=== PATIENT | female | born 1955 | race Caucasian/White ===

== ENCOUNTER 2020-02-18 09:14 | Outpatient (CLI) | payer BC, SELFPAY ==
--- NOTE | ~2020-02-18 | DEXA_ITS ---
Bone Density Report Name: Sourav Murdock Age: 64 Sex: Female Ethnicity: White Date of : 1955 Indication: postmenopausal; parental hip fracture; prior fracture; Referring Provider: Jose Quach Study: Bone densitometry was performed. Exam Date: February 18, 2020 Accession number: [id number] Bone Density: Region BMD T-score Z-score Classification AP Spine (L1-L4) 0.943 -0.9 0.7 Normal Femoral Neck (Left) 0.466 -3.4 -2.0 Osteoporosis Total Hip (Left) 0.560 -3.1 -2.0 Osteoporosis Total Hip Bilateral Avg 0.567 -3.0 -2.0 Osteoporosis Femoral Neck (Right) 0.449 -3.6 -2.2 Osteoporosis Total Hip (Right) 0.572 -3.0 -1.9 Osteoporosis World Health Organization criteria for BMD impression classify patients as: Normal (T-score at or above -1.0), Osteopenia (T-score between -1.0 and -2.5), or Osteoporosis (T-score at or below -2.5). 10-year Fracture Risk: FRAX not reported because: Some T-score for Spine Total or Hip Total or Femoral Neck at or below -2.5 Clinical Information Provided by Patient: Has had a low trauma fracture Parent has had a hip fracture Patient maximum height was 64 Menopause Age: 58 No regular weight bearing exercise Drinks caffeinated beverages Onset of menses at age 14 Number of children 2 Impression: The patient has established osteoporosis, based on the Right Femoral Neck T-score and the existence of a prior fracture. The patient has risk factors, including: parental hip fracture, previous fracture. Discussion: HIGH RISK OF FRACTURE. BONE DENSITY IS UNDESIRABLY LOW AT ONE OR MORE SKELETAL SITES, CONSISTENT WITH POSTMENOPAUSAL OSTEOPOROSIS. This patient's lowest T-score, in a patient who has previously fractured, meets the World Health Organization's (WHO) criteria for severe osteoporosis. In untreated patients, the risk of osteoporotic fracture increases approximately two-fold for each 1.0 SD decrease in T-score. Low bone density is not the only risk factor for fracture; also consider factors such as patient's age, frailty or poor health, risk of falling, risk of injury, previous osteoporotic fracture, family history of osteoporosis, cigarette smoking, low body weight, etc. Not everyone with low bone mineral density has osteoporosis; osteomalacia and other metabolic bone disorders should also be considered. Patients who have osteoporosis should be evaluated for specific diseases and conditions (secondary causes) that may cause or contribute to bone loss. The [place] [employer] Clinical Endocrinologists (AACE) and National Osteoporosis Foundation (NOF) recommend pharmacologic intervention for all postmenopausal women whose T-score is in this range. The patient should follow a healthful lifestyle (good nutrition with adequate calcium and vitamin D, and appropriate weight-bearing exercise). Fo
--- NOTE | ~2020-02-18 | MM_ITS ---
EXAMINATION: MM screening [place] BI w rossana HISTORY: Screening mammogram TECHNIQUE: Craniocaudal and mediolateral oblique 3-D tomosynthesis images were obtained and synthetic 2-D images were generated. CAD analysis was submitted and interpreted. COMPARISON: 08/21/2018, 11/29/2016, 03/19/2013 bilateral digital screening mammogram examinations BREAST PARENCHYMAL COMPOSITION: There are scattered areas of fibroglandular density. FINDINGS: There is no evidence of suspicious mass, calcification, or architectural distortion to sugg est malignancy in either breast. There has been no suspicious interval change. IMPRESSION: 1. No mammographic evidence of malignancy. 2. Recommend routine screening mammography in one year. BI-RADS Category 1: Negative Reviewed, dictated and finalized at location A.
== END 2020-02-18 09:15 | disposition home or self-care (01) ==
PROVIDERS: PCP Family Medicine; Visit Provider Family Medicine
DX: Z12.31 Encounter for screening mammogram for malignant neoplasm of breast (principal); Z13.820 Encounter for screening for osteoporosis; M81.0 Age-related osteoporosis without current pathological fracture
CPT/HCPCS: 77063; 77067; 77080

== ENCOUNTER 2020-04-17 14:49 | Emergency (ER) | payer BC, MEDICAID, SELFPAY ==
--- NOTE | ~2020-04-17 | US_ITS ---
EXAMINATION: US venous doppler [facility] EXAM DATE: 04/17/2020 16:00 INDICATION: Left leg pain and swelling. TECHNIQUE: Multiple grayscale, color flow and Doppler images of the left lower extremity deep venous system were obtained and reviewed. There is no prior study for comparison. FINDINGS: The left common femoral, femoral and profunda veins demonstrate normal color flow, respirat ory variation, augmentation and compressibility. Compressibility, color flow confirmed within the le ft popliteal, posterior tibial, peroneal, and greater saphenous veins. IMPRESSION: 1. No left lower extremity deep venous thrombosis. Reviewed, dictated and finalized at location A. Y CAREGIVER
[2020-04-17 14:53] VITALS: BP 206/96; PULSE 115; RESP 20; TEMP 36.7; O2SAT 99
--- NOTE | 2020-04-17 15:53 | ED.LOWEXIN ---
HPI - Extremity Injury (Lower) General Chief Complaint: Extremity Injury, Lower Stated Complaint: poss blood clot in leg Time Seen by Provider: 04/17/20 15:06 Source: patient Mode of arrival: ambulatory Limitations: no limitations History of Present Illness HPI Narrative: Patient is a 64-year-old female who presents to emergency department for evaluation of left leg pain patient notes today developing cramping in the left thigh and feeling as though she is having swelling about her left knee denies injury or trauma or similar occurrence has not taken anything for her symptoms patient on arrival to emergency department is in no distress presents with normal gait patient has concern for DVT noting that her mother had had a blood clot in the past Related Data Allergies Allergy/AdvReac Type Severity Reaction Status Date / Time No Known Allergies Allergy Verified 04/17/20 15:07 Review of Systems Review of Systems: All systems reviewed & are unremarkable except as noted in HPI and below PMFSH Family History Family History Grandparent Diabetes mellitus Family history of malignant neoplasm of stomach Mother Family history of malignant neoplasm of breast in first degree relative Social History Social History Smoking status: Never smoker Alcohol intake: current Exam Narrative: Exam Narrative: GENERAL: Well-appearing, well-nourished, and in no acute distress. HEAD: Normocephalic, atraumatic. EYES: PERRLA and EOMI. ENT: Nares clear, no rhinorrhea or epistaxis. Mucous membranes moist. CHEST: Clear to auscultation. No respiratory distress. No wheezes rales or rhonchi HEART: Regular rate and rhythm. No murmur heard. Normal peripheral pulses. EXTREMITIES: Normal range of motion. No edema. Remedy nontender with slight swelling to the anterior left knee no erythema or other deformities noted SKIN: Warm, dry, no rash. NEURO: No focal deficits. Alert and oriented x3. Cranial nerves II through XII grossly intact. Neurovascularly intact PSYCH: Normal mood and affect. Course Vital Signs Vital signs: Vital Signs Temperature 98.0 F 04/17/20 14:53 Pulse Rate 115 H 04/17/20 14:53 Respiratory Rate 20 04/17/20 14:53 Blood Pressure 206/96 H 04/17/20 14:53 Pulse Oximetry 99 12/18/20 14:53 Temperature 98.0 F 04/17/20 14:53 Pulse Rate 115 H 04/17/20 14:53 Respiratory Rate 20 04/17/20 14:53 Blood Pressure 206/96 H 04/17/20 14:53 Pulse Oximetry 99 04/17/20 14:53 Discharge Plan Discharge Prescriptions: No Action alendronate 70 mg tablet 70 mg PO WEEKLY Qty: 13 RF: 3
[2020-04-17 16:17] LABS: Basophils Percent Auto 0.4 % (0.2-1.2); Eosinophils Absolute Auto 0.1 K/mm3 (0-0.3); Eosinophils Percent Auto 0.7 % (0-4.4); Hematocrit 39.5 % (37.0-47.0); Hemoglobin 13.3 g/dL (12.0-15.0); Immature Granulocyte Absolute 0.04 K/mm3 (0.00-0.031); Immature Granulocyte Percent A 0.4 % (0-0.5); Lymphocytes Absolute Auto 1.27 K/mm3 (0.9-3.2); Lymphocytes Percent Auto 12.1 % (18.3-44.2); Mean Corpuscular HGB Conc 33.7 g/dl (32-36); Mean Corpuscular Hemoglobin 31.7 pg (26-34); Mean Platelet Volume 9.1 fl (7.4-10.4); Monocytes Percent Auto 9.7 % (2.6-8.5); Neutrophils Absolute Auto 8.1 K/mm3 (1.3-6.7); Neutrophils Percent Auto 76.7 % (45.5-73.1); Platelet Count Result 282 k/mm3 (150-375); Red Cell Distribution Width 13.2 % (11.5-14.5); White Blood Count 10.5 K/mm3 (4.5-10.0)
--- NOTE | 2020-04-17 16:25 | ED.GENADULT ---
HPI - General Adult General Chief complaint: Extremity Injury, Lower <Deep Richardson PA-C - Last Filed: 04/17/20 16:39> Stated complaint: poss blood clot in leg <Deep Richardson PA-C - Last Filed: 04/17/20 16:39> Time Seen by Provider: 04/17/20 15:06 <Deep Richardson PA-C - Last Filed: 04/17/20 16:39> Source: patient <Deep Richardson PA-C - Last Filed: 04/17/20 16:39> Mode of arrival: ambulatory <Deep Richardson PA-C - Last Filed: 04/17/20 16:39> Limitations: no limitations <Deep Richardson PA-C - Last Filed: 04/17/20 16:39> History of Present Illness HPI narrative: Patient is a 64-year-old female who presents to emergency department for evaluation of left thigh pain that began this morning followed by anterior left knee swelling denies injury trauma similar occurrence URI symptoms dyspnea chest pain lightheadedness dizziness. Patient does not take anything for symptoms presents in no distress <Deep Richardson PA-C - Last Filed: 04/17/20 16:39> Related Data Allergies/adverse reactions: Allergies Allergy/AdvReac Type Severity Reaction Status Date / Time No Known Allergies Allergy Verified 04/17/20 15:07 <Deep Richardson PA-C - Last Filed: 04/17/20 16:39> Review of Systems Review of Systems: All systems reviewed & are unremarkable except as noted in HPI and below <Deep Richardson PA-C - Last Filed: 04/17/20 16:39> [facility] Family History Family History: Family History Grandparent Diabetes mellitus Family history of malignant neoplasm of stomach Mother Family history of malignant neoplasm of breast in first degree relative <Deep Richardson PA-C - Last Filed: 04/17/20 16:39> Social History Social History: Social History Smoking status: Never smoker Alcohol intake: current <JOSÉ MIGUEL Byers Last Filed: 04/17/20 16:39> Exam Narrative: Exam Narrative: GENERAL: Well-appearing, well-nourished, and in no acute distress. HEAD: Normocephalic, atraumatic. EYES: PERRLA and EOMI. ENT: Nares clear, no rhinorrhea or epistaxis. Mucous membranes moist. CHEST: Clear to auscultation. No respiratory distress. No wheezes rales or rhonchi HEART: Regular rate and rhythm. No murmur heard. EXTREMITIES: Normal range of motion. No edema. Slight swelling to the anterior left knee no erythema deformity SKIN: Warm, dry, no rash. NEURO: No focal deficits. Alert and oriented x3. PSYCH: Normal mood and affect. Neurovascularly intact <JOSÉ MIGUEL Byers Last Filed: 04/17/20 16:39> Course Course Emergency Course: Patient in the room no distress aware of case findings treatment plan diagnosis agreeing to follow-up as directed or to return if symptoms worsen or concerns no high risk changes in the blood work or imaging. <JOSÉ MIGUEL Byers Last Filed: 04/17/20 16:39> Vital Signs Vital signs: Vital Signs Temperature 36.7 C 04/17/20 14:53 Pulse Rate 115 H 04/17/20 14:53 Respiratory Rate 20 04/17/20 14:53 Blood Pressure 206/96 H 04/17/20 14:53 Pulse Oximetry 99 04/17/20 14:53 Temperature 36.7 C 04/17/20 14:53 Pulse Rate 88 04/17/20 16:50 Respiratory Rate 16 04/17/20 16:50 Blood Pressure 137/84 04/17/20 16:50 Pulse Oximetry 100 04/17/20 16:50 <JOSÉ MIGUEL Byers Last Filed: 04/17/20 16:39> Vital Signs Temperature 36.7 C 04/17/20 14:53 Pulse Rate 115 H 04/17/20 14:53 Respiratory Rate 20 04/17/20 14:53 Blood Pressure 206/96 H 04/17/20 14:53 Pulse Oximetry 99 04/17/20 14:53 Temperature 36.7 C 04/17/20 14:53 Pulse Rate 88 04/17/20 16:50 Respiratory Rate 16 04/17/20 16:50 Blood Pressure 137/84 04/17/20 16:50 Pulse Oximetry 100 04/17/20 16:50 <Radha Reina MD - Last Filed: 04/17/20 17:01> Medical Decision Making
[2020-04-17 16:32] LABS: Anion Gap 7 mmol/L (8-16); Blood Urea Nitrogen 14 mg/dL (7-17); Calcium 9.4 mg/dL (8.4-10.2); Carbon Dioxide 29 mmol/L (22-30); Chloride 103 mmol/L (98-107); Estimated CRCL calculation 80 ml/min; Estimated Glomerular Filt Rate > 60; Glucose 108 mg/dL (65-105); Potassium 3.5 mmol/L (3.4-5.0); Sodium 139 mmol/L (137-145)
[2020-04-17 16:50] VITALS: BP 137/84; PULSE 88; RESP 16; O2SAT 100
== END 2020-04-17 16:53 | disposition home or self-care (01) ==
PROVIDERS: Emergency Medicine Emergency Medical Services; Emergency Provider Emergency Medicine; PCP Family Medicine
DX: M79.652 Pain in left thigh (principal)
CPT/HCPCS: 36415; 80048; 85025; 93971; 99284

== ENCOUNTER 2021-02-23 09:03 | Outpatient (CLI) | payer BC, SELFPAY ==
--- NOTE | ~2021-02-23 | MM_ITS ---
EXAMINATION: MM screening [place] BI w rossana HISTORY: Screening mammogram TECHNIQUE: Craniocaudal and mediolateral oblique 3-D tomosynthesis images were obtained and synthetic 2-D images were generated. CAD analysis was submitted and interpreted. COMPARISON: , 08/21/2018, 11/29/2016 bilateral digital screening mammogram examinations BREAST PARENCHYMAL COMPOSITION: There are scattered areas of fibroglandular density. FINDINGS: There is no evidence of suspicious mass, calcification, or architectural distortion to sugg est malignancy in either breast. There has been no suspicious interval change. IMPRESSION: 1. No mammographic evidence of malignancy. 2. Recommend routine screening mammography in one year. BI-RADS Category 1: Negative Reviewed, dictated and finalized at location A.
== END 2021-02-23 09:04 | disposition home or self-care (01) ==
LOC: ANHIMG 09:05
PROVIDERS: PCP Family Medicine; Visit Provider Family Medicine
DX: Z12.31 Encounter for screening mammogram for malignant neoplasm of breast (principal)
CPT/HCPCS: 77063; 77067

== ENCOUNTER 2022-04-19 09:41 | Outpatient (CLI) | payer MEDICARE, OTHER, SELFPAY ==
--- NOTE | ~2022-04-19 | DEXA_ITS ---
Bone Density Report Name: ANTONELLA YANES Age: 67 Sex: Female Ethnicity: White Date of : 1955 Indication: postmenopausal osteoporosis; monitoring treatment; parental hip fracture; prior fracture; Referring Provider: EDEN TORRES Study: Bone densitometry was performed. Exam Date: April 19, 2022 Accession number: [id number] Bone Density: Region BMD T-score Z-score Classification AP Spine(L1-L4) 1.074 0.2 2.1 Normal Femoral Neck (Left) 0.501 -3.1 -1.6 Osteoporosis Total Hip (Left) 0.637 -2.5 -1.2 Osteoporosis Femoral Neck (Right) 0.489 -3.2 -1.7 Osteoporosis Total Hip (Right) 0.595 -2.8 -1.6 Osteoporosis Total Hip Mean 0.616 -2.7 -1.4 Osteoporosis World Health Organization criteria for BMD impression classify patients as: Normal (T-score at or above -1.0), Osteopenia (T-score between -1.0 and -2.5), or Osteoporosis (T-score at or below -2.5). 10-year Fracture Risk: FRAX not reported because: Some T-score for Spine Total or Hip Total or Femoral Neck at or below -2.5 Treated for osteoporosis Previous Exams: Region Exam Age BMD T-score BMD Change BMD Change Date g/cm2 vs Baseline vs Previous AP Spine (L1-L4) 04/19/2022 67 1.074 0.2 0.131 (13.9%)* 0.131 (13.9%)* 02/18/2020 64 0.943 -0.9 Total Hip(Left) 04/19/2022 67 0.637 -2.5 0.077 (13.8%)* 0.077 (13.8%)* 02/18/2020 64 0.560 -3.1 Total Hip(Right) 04/19/2022 67 0.595 -2.8 0.023 (4.1%) 0.023 (4.1%) 02/18/2020 64 0.572 -3.0 *Denotes significance at 95% confidence level, LSC for AP Spine = 0.022 g/cm2, LSC for Total Hip = 0.027 g/cm2 Clinical Information Provided by Patient: Has had a low trauma fracture Parent has had a hip fracture Is being treated for osteoporosis Has used the following medications: Fosamax (i.e. alendronate), Vitamin D, Calcium Patient maximum height was 64 Menopause Age: 58 No regular weight bearing exercise Drinks caffeinated beverages Onset of menses at age 14 Number of children 2 Impression: The patient has established osteoporosis, based on the Right Femoral Neck T-score and the existence of a prior fracture. The patient has risk factors, including: parental hip fracture, previous fracture. No significant bone loss was observed. Discussion: PATIENT UNDER TREATMENT WITH NO SIGNIFICANT BMD LOSS SINCE LAST EXAM. In an untreated patient, BMD typically declines with age. A lack of decline or gain is usually a sign that t
--- NOTE | ~2022-04-19 | MM_ITS ---
EXAMINATION: MM screening [place]antiago BI w rossana HISTORY: Screening TECHNIQUE: Craniocaudal and mediolateral oblique 3-D tomosynthesis images were obtained and synthetic 2-D images were generated. CAD analysis was submitted and interpreted. COMPARISON: Comparison to multiple prior studies sequentially, with oldest reviewed study dated 03/01. BREAST PARENCHYMAL COMPOSITION: There are scattered areas of fibroglandular density. FINDINGS: There is no evidence of suspicious mass, calcification, or architectural distortion to sugg est malignancy in either breast. There has been no suspicious interval change. IMPRESSION: 1. No mammographic evidence of malignancy. 2. Recommend routine screening mammography in one year. BI-RADS Category 1: Negative Reviewed, dictated and finalized at location A. R CREW MEMBER
== END 2022-04-19 09:42 | disposition home or self-care (01) ==
LOC: ANHIMG 09:43
PROVIDERS: PCP Emergency Medicine; Visit Provider Physician Assistant
DX: Z12.31 Encounter for screening mammogram for malignant neoplasm of breast (principal); M81.0 Age-related osteoporosis without current pathological fracture
CPT/HCPCS: 77063; 77067; 77080

== ENCOUNTER 2023-10-03 09:34 | Outpatient (CLI) | payer MEDICARE, OTHER, SELFPAY ==
--- NOTE | ~2023-10-03 | MM_ITS ---
EXAMINATION: MM screening [place]antiago BI w rossana HISTORY: Screening TECHNIQUE: Craniocaudal and mediolateral oblique 3-D tomosynthesis images were obtained and synthetic 2-D images were generated. CAD analysis was submitted and interpreted. COMPARISON: Comparison to multiple prior studies sequentially, with oldest reviewed study dated 05/2016. BREAST PARENCHYMAL COMPOSITION: Not dense: There are scattered areas of fibroglandular density. FINDINGS: There is no evidence of suspicious mass, calcification, or architectural distortion to sugg est malignancy in either breast. There has been no suspicious interval change. IMPRESSION: 1. No mammographic evidence of malignancy. 2. Recommend routine screening mammography in one year. BI-RADS Category 1: Negative Reviewed, dictated and finalized at location B.
== END 2023-10-03 09:35 | disposition home or self-care (01) ==
PROVIDERS: PCP Emergency Medicine; Visit Provider Nurse Practitioner Family
DX: Z12.31 Encounter for screening mammogram for malignant neoplasm of breast (principal)
CPT/HCPCS: 77063; 77067

== ENCOUNTER 2024-08-27 08:36 | Outpatient (CLI) | payer MEDICARE, OTHER, SELFPAY ==
--- OUTSIDE RECORDS SUMMARY | 2024-08-27 08:59 | XMS_ITS | Clinical Summary ---
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 Gender Identity Not on file Sexual Orientation Not on file Plan of Treatment Health Maintenance Due Date Last Done Comments Colorectal Cancer Screening Colonoscopy (10 Years) 1955 Hepatitis C 1974 DTaP, Tdap and Td Vaccines ( 1 - Tdap) 1975 Mammogram Screening 1996 Pneumococcal Vaccine: 50+ Ye ars (1 of 1 - PCV) 2006 Zoster Vaccines (1 of 2) 2006 Dexa Scan (General) 2021 COVID-19 Vaccine ( - 2023-2 5 season) 2023 RSV Immunization or 60+ Years (1 - 1-dose 75+ series) 2031 Meningococcal B Vaccine Aged Out No l onger eligible based on patient's age to complete this topic Meningococcal Vaccine Aged Out No fred barrett eligible based on patient's age to complete this topic RSV Immunizations Under 20 Months Aged Out No longer eligible based on patient's age to complete this topic Insurance [facility] Care Teams Computer Systems Designer Relationship Specialty Start Date End Date Jose Quach MD [address] [place] [address] PCP - General FAMILY PRACTICE 03/03/20
== END 2024-08-27 08:37 | disposition home or self-care (01) ==
LOC: ANHAUDIO 08:37
PROVIDERS: PCP Family Medicine; Visit Provider Family Medicine
DX: H90.3 Sensorineural hearing loss, bilateral (principal); H73.813 Atrophic flaccid tympanic membrane, bilateral
CPT/HCPCS: 92557; 92567

== ENCOUNTER 2024-10-08 08:24 | Outpatient (CLI) | payer MEDICARE, OTHER, SELFPAY ==
--- NOTE | ~2024-10-08 | MM_ITS ---
EXAMINATION: MM screening santiago BI w rossana HISTORY: Screening TECHNIQUE: Craniocaudal and mediolateral oblique 3-D tomosynthesis images were obtained and synthetic 2-D images were generated. CAD analysis was submitted and interpreted. COMPARISON: Comparison to multiple prior studies sequentially, with oldest reviewed study dated 05/2016. BREAST PARENCHYMAL COMPOSITION: Not dense: There are scattered areas of fibroglandular density. FINDINGS: There is no evidence of suspicious mass, calcification, or architectural distortion to sugg est malignancy in either breast. There has been no suspicious interval change. IMPRESSION: 1. No mammographic evidence of malignancy. 2. Recommend routine screening mammography in one year. BI-RADS Category 1: Negative Reviewed, dictated and finalized at location []
== END 2024-10-08 08:25 | disposition home or self-care (01) ==
PROVIDERS: PCP Family Medicine; Visit Provider Family Medicine
DX: Z12.31 Encounter for screening mammogram for malignant neoplasm of breast (principal)
CPT/HCPCS: 77063; 77067

== ENCOUNTER 2024-11-26 12:42 | Outpatient (CLI) | payer MEDICARE, OTHER, SELFPAY ==
--- NOTE | ~2024-11-26 | DEXA_ITS ---
Bone Density Report Name: ANTONELLA YANES Age: 69 Sex: Female Ethnicity: White Date of : 1955 Indication: postmenopausal; screening for osteoporosis; parental hip fracture; prior fracture; Referring Provider: BRITNEY KIRAN Study: Bone densitometry was performed. Exam Date: November 26, 2024 Accession number: [id number] Bone Density: Region BMD T-score Z-score Classification AP Spine(L1-L4) 1.113 0.6 2.6 Normal Femoral Neck (Left) 0.523 -2.9 -1.2 Osteoporosis Total Hip (Left) 0.616 -2.7 -1.3 Osteoporosis Femoral Neck (Right) 0.507 -3.1 -1.4 Osteoporosis Total Hip (Right) 0.621 -2.6 -1.2 Osteoporosis Total Hip Mean 0.619 -2.7 -1.3 Osteoporosis World Health Organization criteria for BMD impression classify patients as: Normal (T-score at or above -1.0), Osteopenia (T-score between -1.0 and -2.5), or Osteoporosis (T-score at or below -2.5). 10-year Fracture Risk: FRAX not reported because: Some T-score for Spine Total or Hip Total or Femoral Neck at or below -2.5 Treated for osteoporosis Clinical Information Provided by Patient: Has had a low trauma fracture Parent has had a hip fracture Is being treated for osteoporosis Has used the following medications: Fosamax (i.e. alendronate), Vitamin D, Calcium Patient maximum height was 64 Menopause Age: 58 Does not regularly consume dairy products Drinks caffeinated beverages Onset of menses at age 14 Number of children 2 Impression: The patient has established osteoporosis, based on the Right Femoral Neck T-score and the existence of a prior fracture. The patient has risk factors, including: parental hip fracture, previous fracture. Discussion: It is important to ask patients whether they are taking their medications and to encourage continued and appropriate compliance with their osteoporosis therapies to reduce fracture risk. It is also important to review their risk factors and encourage appropriate calcium and vitamin D intakes, exercise, fall prevention and other lifestyle measures. Follow-Up: Consider a repeat BMD and Vertebral Fracture Assessment (VFA) exam in 2 years or sooner if medically necessary, to reassess this patient's status. Reported by: NADEEN on 11/26/2024 1:26:00 PM. Reviewed, dictated and finalized at location A.
--- OUTSIDE RECORDS SUMMARY | 2024-11-26 12:45 | XMS_ITS | Clinical Summary ---
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 Care Teams Graphics Editor Relationship Specialty Start Date End Date Jose Quach MD [address] [place] [address] PCP - General FAMILY PRACTICE 03/03/20
--- OUTSIDE RECORDS SUMMARY | 2024-11-26 12:46 | XMS_ITS | Patient Health Record ---
Author Organization [facility] [employer] Address [address] [facility] [address] [place] [address] Care Team Providers Care Optical Instrument Inspector Name Role Phone Hipolito Hurtado Unavailable [phone] Reason For Referral No Information Plan Of Treatment No Information
== END 2024-11-26 12:43 | disposition home or self-care (01) ==
LOC: ANHIMG 12:43
PROVIDERS: PCP Family Medicine; Visit Provider Family Medicine
DX: M81.0 Age-related osteoporosis without current pathological fracture (principal); Z13.820 Encounter for screening for osteoporosis
CPT/HCPCS: 77080

== ENCOUNTER 2024-12-03 08:30 | Outpatient (RCR) | payer SELFPAY | END 2024-12-03 23:59 | disposition home or self-care (01) | LOC: ANHAUDIO 08:30 | PROVIDERS: PCP Family Medicine; Visit Provider Family Medicine | DX: Z46.1 Encounter for fitting and adjustment of hearing aid (principal) | CPT/HCPCS: 99199; V5261 ==